=== PATIENT | female | born 1990 | race Two or more races ===

== ENCOUNTER → 2017-10-13 | Outpatient (CLI) | payer BC, OTHER ==
[~2017-10-13] MED LIST: ACEBUTCAFT PO; ACET325 PO; ALBU90OI INH; AMOX500 PO; ANTIBIOTICS; ASCO500 PO; BENZ100A PO; BIRTH CONTROL MEDS; CALCAVITD PO; CEPH500 PO; CYCL10 PO; FAMO20 PO; HYDACE5 PO; HYOS.125 SL; IBUP600 PO; IBUP800 PO; LEVSOD100 PO; LIDO700A20 TOP; METO10 PO; MULVITMINE; NAPR500 PO; NAPR550 PO; NITR100CA PO; Norco 5-325 Ta1 EACH PO; OMEP20ER PO; ONDA4ODT MM; OXYACE5T PO; PRODEXEL PO; PROM25 PO; Prednisone20 MG PO; Prilosec20 MG PO; RXONDA4ODT MM; RXPROM25 PO; SUCR1 PO; THYROID; TYLENOL AND MOTRIN; Verotin-Gr Cap1 EACH PO; Zithromax250 MG PO; Zofran Odt4 MG PO; Zofran8 MG PO
== END ==
LOC: LAB SHORT 16:24
DX: M54.5 Low back pain (principal); N39.0 Urinary tract infection, site not specified
CPT/HCPCS: 87086

== ENCOUNTER → 2018-03-23 | Outpatient (CLI) | payer OTHER ==
[~2018-03-23] MED LIST changes: -LEVSOD100 PO; -LIDO700A20 TOP; -Prednisone20 MG PO; -Verotin-Gr Cap1 EACH PO; -Zofran8 MG PO
== END ==
LOC: LAB 17:09 → LAB SHORT 17:09
DX: M54.89 Other dorsalgia (principal)
CPT/HCPCS: 87086

== ENCOUNTER 2018-05-05 22:33 | Emergency (ER) | payer OTHER ==
[~2018-05-05] VITALS: Ht 154.9 cm; Wt 111.1 kg
[2018-05-06] MEDS ORDERED: Prednisone20 MG PO (02:44)
[2018-05-06] MEDS ORDERED: LIDO700A20 TOP (02:44)
== END 2018-05-06 02:59 | disposition home or self-care (01) ==
LOC: ER 22:33
DX: M54.12 Radiculopathy, cervical region (principal); G89.29 Other chronic pain; R20.2 Paresthesia of skin; Z79.899 Other long term (current) drug therapy; Z79.52 Long term (current) use of systemic steroids; K21.9 Gastro-esophageal reflux disease without esophagitis
CPT/HCPCS: 82947; 99283

== ENCOUNTER → 2018-11-30 | Outpatient (CLI) | payer OTHER ==
[~2018-11-30] MED LIST changes: +LEVSOD100 PO; +LIDO700A20 TOP; +Prednisone20 MG PO; +Verotin-Gr Cap1 EACH PO; +Zofran8 MG PO
[2018-12-02 02:12] LABS: CHLAMYDIA TRACHOMATIS, NAA Negative (Negative); HPV 16 Negative (Negative); HPV 18 Negative (Negative); HPV OTHER HR TYPES Positive (Negative); NEISSERIA GONORRHOEAE, NAA Negative (Negative)
== END | disposition home or self-care (01) ==
LOC: LAB SHORT 10:21 → LAB 10:21
PROVIDERS: Obstetrics & Gynecology
DX: Z36.89 Encounter for other specified antenatal screening (principal)
CPT/HCPCS: 87491; 87591; 87624; 87625; G0123

== ENCOUNTER → 2019-02-15 | Outpatient (CLI) | payer OTHER ==
[2019-02-15 10:16] LABS: Source, Urine Clean Catch
[2019-02-15 12:35] LABS: Bilirubin, Urine Neg (Neg); Blood, Urine 1+ (Neg); Glucose Qualitative, Urine Neg (Neg); Ketones, Urine Neg (Neg); Leukocyte Esterase, Urine 1+ (Neg); Nitrite, Urine Neg (Neg); Protein, Urine 3+ (Neg); Specific Gravity, Urine 1.015 (1.003-1.022); Urobilinogen, Urine NORM (Normal); pH, Urine 6.5 (5.0-8.0)
[2019-02-15 12:54] LABS: Appearance, Urine Hazy (Clear); Bacteria Few /hpf; Color, Urine Yellow (P-Yellow); Squamous Epithelial Cells Mod /hpf (Few)
[2019-02-16 11:12] LABS: Candida species (DNA Probe) Negative (NEGATIVE); G. vaginalis (DNA Probe) Negative (NEGATIVE); T. vaginalis (DNA Probe) Negative (NEGATIVE)
== END | disposition home or self-care (01) ==
LOC: LAB SHORT 09:51 → LAB 09:51
PROVIDERS: Obstetrics & Gynecology
DX: N76.0 Acute vaginitis (principal); R80.9 Proteinuria, unspecified
CPT/HCPCS: 81001; 87086; 87480; 87510; 87660

== ENCOUNTER → 2019-05-11 | Outpatient (CLI) | payer OTHER | END | disposition home or self-care (01) | LOC: LAB EV 17:41 → LAB SHORT 17:41 | DX: Z34.80 Encounter for supervision of other normal pregnancy, unspecified trimester (principal) | CPT/HCPCS: 87081; 87653 ==

== ENCOUNTER 2019-05-25 14:30 | Inpatient (IN) | payer OTHER ==
[~2019-05-25] VITALS: Ht 154.9 cm; Wt 124.2 kg
[2019-05-25 16:24] LABS: BASOPHILS ABSOLUTE AUTO 0.02 K/mm3 (0.00-0.23); BASOPHILS PERCENT AUTO 0 % (0-2); EOSINOPHILS ABSOLUTE AUTO 0.03 K/mm3 (0.00-0.68); EOSINOPHILS PERCENT AUTO 0 % (0-6); Hematocrit 37.4 % (33.0-51.0); Hemoglobin 12.2 g/dL (11.5-16.0); IMMATURE GRAN ABSOLUTE AUTO 0.07 K/mm3 (0.00-0.10); IMMATURE GRAN PERCENT AUTO 1 % (0-1); LYMPHOCYTES ABSOLUTE AUTO 1.61 K/mm3 (0.84-5.20); LYMPHOCYTES PERCENT AUTO 18 % (21-46); MONOCYTES ABSOLUTE AUTO 0.53 K/mm3 (0.16-1.47); MONOCYTES PERCENT AUTO 6 % (4-13); Mean Corpuscular HGB 27.2 pg (26.0-34.0); Mean Corpuscular HGB Conc 32.6 g/dL (31.5-36.5); Mean Corpuscular Volume 83 fL (80-100); Mean Platelet Volume 9.6 fL (9.1-12.4); NEUTROPHILS ABSOLUTE AUTO 6.94 K/mm3 (1.96-9.15); NEUTROPHILS PERCENT AUTO 75 % (41-73); Platelet Count 293 K/mm3 (150-400); RDW Coefficient Variation 13.4 % (11.7-14.2); RDW Standard Deviation 40.6 fL (35.1-46.3); Red Blood Cell Count 4.49 M/mm3 (3.80-5.20)
[2019-05-26 05:45] LABS: Hematocrit 32.1 % (33.0-51.0); Hemoglobin 10.5 g/dL (11.5-16.0); Mean Corpuscular HGB 27.1 pg (26.0-34.0); Mean Corpuscular HGB Conc 32.7 g/dL (31.5-36.5); Mean Corpuscular Volume 83 fL (80-100); Mean Platelet Volume 9.6 fL (9.1-12.4); Platelet Count 256 K/mm3 (150-400); RDW Coefficient Variation 13.6 % (11.7-14.2); RDW Standard Deviation 40.5 fL (35.1-46.3); Red Blood Cell Count 3.87 M/mm3 (3.80-5.20)
[2019-05-26] MEDS ORDERED: IBUP800 PO (11:59)
--- NOTE | 2019-05-26 20:52 | NUR ---
DC SUMMARY PT PAIN CONTROLLED W/ ORAL MEDICATIONS. VSS AND BLEEDING WNL. CARING FOR SELF AND BABY INDEPENDENTLY. DC INSTRUCTIONS GIVEN W/ NO ADDITIONAL QUESTIONS AT THIS TIME. PT AMBULATED OFF UNIT W/ FAMILY.
== END 2019-05-26 20:55 | disposition home or self-care (01) | DRG 807 ==
LOC: BC 14:30 → OBS 14:30 → BC 15:10
PROVIDERS: ADMIT Obstetrics & Gynecology
PROC: 10E0XZZ Delivery of Products of Conception, External Approach (ICD-10-PCS; principal; 2019-05-25)
PROC: 10907ZC Drainage of Amniotic Fluid, Therapeutic from Products of Conception, Via Natural or Artificial Opening (ICD-10-PCS; 2019-05-25)
DX: O77.0 Labor and delivery complicated by meconium in amniotic fluid (principal); Z37.0 Single live birth; Z3A.38 38 weeks gestation of pregnancy; O69.81X0 Labor and delivery complicated by cord around neck, without compression, not applicable or unspecified
CPT/HCPCS: 36415; 59025; 85025; 85027; 87210; 99214; J1885; J2590

== ENCOUNTER → 2019-07-14 | Outpatient (CLI) | payer OTHER | END | disposition home or self-care (01) | LOC: LAB 10:39 → LAB SHORT 10:39 | DX: O99.285 Endocrine, nutritional and metabolic diseases complicating the puerperium (principal); E03.9 Hypothyroidism, unspecified | CPT/HCPCS: 84443 ==

== ENCOUNTER → 2020-03-01 | Outpatient (CLI) | payer OTHER | END | disposition home or self-care (01) | LOC: PLD 13:15 → LAB SHORT 13:15 | DX: D06.1 Carcinoma in situ of exocervix (principal) | CPT/HCPCS: 88305; 88342 ==

== ENCOUNTER → 2020-04-20 | Outpatient (CLI) | payer OTHER | END | disposition home or self-care (01) | LOC: PLD 09:54 → LAB SHORT 09:54 | DX: D06.9 Carcinoma in situ of cervix, unspecified (principal) | CPT/HCPCS: 88305 ==

== ENCOUNTER 2020-09-22 23:49 | Emergency (ER) | payer OTHER ==
[~2020-09-22] VITALS: Ht 154.9 cm; Wt 113.4 kg
[2020-09-23 00:32] LABS: Source, Urine Clean Catch
[2020-09-23 00:45] LABS: Bilirubin, Urine Neg (Neg); Blood, Urine 3+ (Neg); Glucose Qualitative, Urine Neg (Neg); Ketones, Urine 1+ (Neg); Leukocyte Esterase, Urine Neg (Neg); Nitrite, Urine Neg (Neg); Protein, Urine Neg (Neg); Specific Gravity, Urine 1.015 (1.003-1.022); Urobilinogen, Urine NORM (Normal)
[2020-09-23 00:50] LABS: Appearance, Urine Clear (Clear); Bacteria Mod /hpf; Color, Urine Yellow (P-Yellow); Red Blood Cells, Urine 0-2 /hpf (0-2); Squamous Epithelial Cells Few /hpf (Few); White Blood Cells, Urine 0-2 /hpf (0-5)
[2020-09-23 00:52] LABS: BASOPHILS ABSOLUTE AUTO 0.04 K/mm3 (0.00-0.23); BASOPHILS PERCENT AUTO 0 % (0-2); EOSINOPHILS ABSOLUTE AUTO 0.13 K/mm3 (0.00-0.68); EOSINOPHILS PERCENT AUTO 1 % (0-6); Hematocrit 38.6 % (33.0-51.0); Hemoglobin 12.4 g/dL (11.5-16.0); IMMATURE GRAN ABSOLUTE AUTO 0.03 K/mm3 (0.00-0.10); IMMATURE GRAN PERCENT AUTO 0 % (0-1); LYMPHOCYTES ABSOLUTE AUTO 3.67 K/mm3 (0.84-5.20); LYMPHOCYTES PERCENT AUTO 28 % (21-46); MONOCYTES ABSOLUTE AUTO 0.55 K/mm3 (0.16-1.47); MONOCYTES PERCENT AUTO 4 % (4-13); Mean Corpuscular HGB 27.5 pg (26.0-34.0); Mean Corpuscular HGB Conc 32.1 g/dL (31.5-36.5); Mean Corpuscular Volume 86 fL (80-100); Mean Platelet Volume 9.3 fL (9.1-12.4); NEUTROPHILS ABSOLUTE AUTO 8.66 K/mm3 (1.96-9.15); NEUTROPHILS PERCENT AUTO 66 % (41-73); Platelet Count 313 K/mm3 (150-400); RDW Coefficient Variation 12.8 % (11.7-14.2); RDW Standard Deviation 39.8 fL (35.1-46.3); Red Blood Cell Count 4.51 M/mm3 (3.80-5.20); White Blood Cell Count 13.08 K/mm3 (4.00-11.30)
[2020-09-23 01:11] LABS: Alanine Aminotransfer (ALT/SGP 23 U/L (12-78); Albumin, Blood 3.3 g/dL (3.4-5.0); Albumin/Globulin Ratio 0.7 (0.8-1.8); Alk Phos 73 U/L (50-136); Anion Gap 4 mmol/L (6-16); Aspartate Aminotrans (AST/SGOT 9 U/L (12-37); Bilirubin, Total 0.2 mg/dL (0.1-1.0); Blood Urea Nitrogen 14 mg/dL (8-24); Bun/Creatinine Ratio 18.9 (12.0-20.0); CO2, Blood 26 mmol/L (21-32); Calcium, Blood 8.6 mg/dL (8.5-10.1); Chloride, Blood 109 mmol/L (98-108); Creatinine, Blood 0.74 mg/dL (0.40-1.00); Globulin, Blood 4.7 g/dL (2.2-4.0); Glomerular Filtration Rate >60 (60-); Glucose, Blood 101 mg/dL (70-99); Potassium, Blood 3.7 mmol/L (3.5-5.5); Sodium, Blood 139 mmol/L (136-145)
== END 2020-09-23 02:32 | disposition home or self-care (01) ==
LOC: ER 23:49
PROVIDERS: Emergency Medicine
DX: R10.32 Left lower quadrant pain (principal); R10.2 Pelvic and perineal pain; K21.9 Gastro-esophageal reflux disease without esophagitis; E03.9 Hypothyroidism, unspecified
CPT/HCPCS: 36415; 80053; 81001; 81025; 85025; 87086; 96374; 99284-25; A9270-GY; J1885

== ENCOUNTER 2020-10-03 13:23 | Emergency (ER) | payer OTHER ==
[~2020-10-03] VITALS: Ht 154.9 cm; Wt 113.4 kg
[2020-10-03 14:22] LABS: BASOPHILS ABSOLUTE AUTO 0.03 K/mm3 (0.00-0.23); BASOPHILS PERCENT AUTO 0 % (0-2); EOSINOPHILS ABSOLUTE AUTO 0.07 K/mm3 (0.00-0.68); EOSINOPHILS PERCENT AUTO 1 % (0-6); Hemoglobin 13.7 g/dL (11.5-16.0); IMMATURE GRAN ABSOLUTE AUTO 0.01 K/mm3 (0.00-0.10); IMMATURE GRAN PERCENT AUTO 0 % (0-1); LYMPHOCYTES ABSOLUTE AUTO 2.67 K/mm3 (0.84-5.20); LYMPHOCYTES PERCENT AUTO 39 % (21-46); MONOCYTES ABSOLUTE AUTO 0.34 K/mm3 (0.16-1.47); MONOCYTES PERCENT AUTO 5 % (4-13); Mean Corpuscular HGB 27.3 pg (26.0-34.0); Mean Corpuscular HGB Conc 31.9 g/dL (31.5-36.5); Mean Corpuscular Volume 86 fL (80-100); Mean Platelet Volume 9.1 fL (9.1-12.4); NEUTROPHILS ABSOLUTE AUTO 3.77 K/mm3 (1.96-9.15); NEUTROPHILS PERCENT AUTO 55 % (41-73); Platelet Count 279 K/mm3 (150-400); RDW Standard Deviation 40.4 fL (35.1-46.3); Red Blood Cell Count 5.01 M/mm3 (3.80-5.20); White Blood Cell Count 6.89 K/mm3 (4.00-11.30)
[2020-10-03 14:42] LABS: Alanine Aminotransfer (ALT/SGP 23 U/L (12-78); Albumin, Blood 3.3 g/dL (3.4-5.0); Albumin/Globulin Ratio 0.7 (0.8-1.8); Alk Phos 59 U/L (50-136); Anion Gap 5 mmol/L (6-16); Aspartate Aminotrans (AST/SGOT 15 U/L (12-37); Bilirubin, Total 0.2 mg/dL (0.1-1.0); Blood Urea Nitrogen 10 mg/dL (8-24); Bun/Creatinine Ratio 16.3 (12.0-20.0); CO2, Blood 25 mmol/L (21-32); Calcium, Blood 9.1 mg/dL (8.5-10.1); Chloride, Blood 108 mmol/L (98-108); Creatinine, Blood 0.61 mg/dL (0.40-1.00); Globulin, Blood 4.8 g/dL (2.2-4.0); Glomerular Filtration Rate >60 (60-); Glucose, Blood 86 mg/dL (70-99); Sodium, Blood 138 mmol/L (136-145); Total Protein, Blood 8.1 g/dL (6.4-8.2)
[2020-10-03 15:31] LABS: Source, Urine Clean Catch
[2020-10-03 15:36] LABS: Appearance, Urine Clear (Clear); Bilirubin, Urine Neg (Neg); Blood, Urine 2+ (Neg); Color, Urine Yellow (P-Yellow); Glucose Qualitative, Urine Neg (Neg); Ketones, Urine 1+ (Neg); Leukocyte Esterase, Urine Neg (Neg); Nitrite, Urine Neg (Neg); Protein, Urine Neg (Neg); Specific Gravity, Urine 1.025 (1.003-1.022); Urobilinogen, Urine NORM (Normal)
[2020-10-03] MEDS ORDERED: NORGESTIMATE-E1 EAC2 PO (16:03)
[2020-10-03 16:13] LABS: White Blood Cells, Urine 0-2 /hpf (0-5)
[2020-10-03 16:14] LABS: Bacteria Few /hpf; Mucus Light (0-Heavy); Squamous Epithelial Cells Mod /hpf (Few)
== END 2020-10-03 16:56 | disposition home or self-care (01) ==
LOC: ER 13:23
PROVIDERS: Physician Assistant
DX: R10.31 Right lower quadrant pain (principal); R11.0 Nausea; Z79.3 Long term (current) use of hormonal contraceptives
CPT/HCPCS: 36415; 76830; 76856; 80053; 81001; 81025; 83690; 85025; 99284-25

== ENCOUNTER 2021-02-15 17:52 | Emergency (ER) | payer OTHER ==
[~2021-02-15] VITALS: Ht 154.9 cm; Wt 124.7 kg
[~2021-02-15 17:52] MED LIST changes: +NORGESTIMATE-E1 EAC2 PO
[2021-02-15 19:14] LABS: Alanine Aminotransfer (ALT/SGP 55 U/L (12-78); Albumin, Blood 3.9 g/dL (3.4-5.0); Albumin/Globulin Ratio 0.9 (0.8-1.8); Alk Phos 83 U/L (50-136); Anion Gap 5 mmol/L (6-16); Aspartate Aminotrans (AST/SGOT 21 U/L (12-37); Beta HCG, Quantitative, Serum <1 mIU/mL (0-3); Bilirubin, Total 0.2 mg/dL (0.1-1.0); Blood Urea Nitrogen 9 mg/dL (8-24); Bun/Creatinine Ratio 13.5 (12.0-20.0); CO2, Blood 25 mmol/L (21-32); Calcium, Blood 9.1 mg/dL (8.5-10.1); Chloride, Blood 110 mmol/L (98-108); Creatinine, Blood 0.67 mg/dL (0.40-1.00); Globulin, Blood 4.3 g/dL (2.2-4.0); Glomerular Filtration Rate >60 (60-); Glucose, Blood 99 mg/dL (70-99); Potassium, Blood 3.6 mmol/L (3.5-5.5); Sodium, Blood 140 mmol/L (136-145); Total Protein, Blood 8.2 g/dL (6.4-8.2)
[2021-02-15 19:35] LABS: BASOPHILS ABSOLUTE AUTO 0.05 K/mm3 (0.00-0.23); BASOPHILS PERCENT AUTO 1 % (0-2); EOSINOPHILS ABSOLUTE AUTO 0.15 K/mm3 (0.00-0.68); EOSINOPHILS PERCENT AUTO 2 % (0-6); Hematocrit 40.4 % (33.0-51.0); Hemoglobin 13.7 g/dL (11.5-16.0); IMMATURE GRAN ABSOLUTE AUTO 0.04 K/mm3 (0.00-0.10); IMMATURE GRAN PERCENT AUTO 0 % (0-1); LYMPHOCYTES ABSOLUTE AUTO 3.45 K/mm3 (0.84-5.20); LYMPHOCYTES PERCENT AUTO 35 % (21-46); MONOCYTES ABSOLUTE AUTO 0.67 K/mm3 (0.16-1.47); MONOCYTES PERCENT AUTO 7 % (4-13); Mean Corpuscular HGB 28.1 pg (26.0-34.0); Mean Corpuscular HGB Conc 33.9 g/dL (31.5-36.5); Mean Corpuscular Volume 83 fL (80-100); NEUTROPHILS ABSOLUTE AUTO 5.58 K/mm3 (1.96-9.15); NEUTROPHILS PERCENT AUTO 56 % (41-73); RDW Coefficient Variation 12.6 % (11.7-14.2); RDW Standard Deviation 38.3 fL (35.1-46.3); Red Blood Cell Count 4.87 M/mm3 (3.80-5.20); White Blood Cell Count 9.94 K/mm3 (4.00-11.30)
[2021-02-15 20:11] LABS: Mean Platelet Volume 10.1 fL (9.1-12.4); Platelet Count 240 K/mm3 (150-400)
[2021-02-15] MEDS ORDERED: PRENATAL TABLE1 EAC2 PO (21:30)
[2021-02-15 21:42] LABS: Source, Urine Clean Catch
[2021-02-15 21:49] LABS: Bilirubin, Urine Neg (Neg); Blood, Urine 2+ (Neg); Glucose Qualitative, Urine Neg (Neg); Ketones, Urine Neg (Neg); Leukocyte Esterase, Urine 1+ (Neg); Nitrite, Urine Neg (Neg); Protein, Urine Neg (Neg); Urobilinogen, Urine NORM (Normal)
[2021-02-15 21:53] LABS: Appearance, Urine Clear (Clear); Color, Urine Yellow (P-Yellow)
[2021-02-15 21:59] LABS: Amorphous Light (0-Heavy); Bacteria Few /hpf; Red Blood Cells, Urine 0-2 /hpf (0-2); Squamous Epithelial Cells Mod /hpf (Few); White Blood Cells, Urine 0-2 /hpf (0-5)
== END 2021-02-15 22:37 | disposition home or self-care (01) ==
LOC: ER 17:52
PROVIDERS: Emergency Medicine
DX: N93.9 Abnormal uterine and vaginal bleeding, unspecified (principal); K21.9 Gastro-esophageal reflux disease without esophagitis
CPT/HCPCS: 36415; 80053; 81001; 84702; 85025; 99284

== ENCOUNTER 2021-04-07 19:03 | Emergency (ER) | payer OTHER ==
[~2021-04-07] VITALS: Ht 154.9 cm; Wt 124.7 kg
[~2021-04-07 19:03] MED LIST changes: +PRENATAL TABLE1 EAC2 PO
[2021-04-07 20:23] LABS: BASOPHILS ABSOLUTE AUTO 0.02 K/mm3 (0.00-0.23); BASOPHILS PERCENT AUTO 0 % (0-2); EOSINOPHILS ABSOLUTE AUTO 0.02 K/mm3 (0.00-0.68); EOSINOPHILS PERCENT AUTO 0 % (0-6); Hematocrit 40.5 % (33.0-51.0); Hemoglobin 13.6 g/dL (11.5-16.0); IMMATURE GRAN ABSOLUTE AUTO 0.03 K/mm3 (0.00-0.10); IMMATURE GRAN PERCENT AUTO 0 % (0-1); LYMPHOCYTES ABSOLUTE AUTO 1.16 K/mm3 (0.84-5.20); LYMPHOCYTES PERCENT AUTO 17 % (21-46); MONOCYTES ABSOLUTE AUTO 0.25 K/mm3 (0.16-1.47); MONOCYTES PERCENT AUTO 4 % (4-13); Mean Corpuscular HGB 28.1 pg (26.0-34.0); Mean Corpuscular HGB Conc 33.6 g/dL (31.5-36.5); Mean Corpuscular Volume 84 fL (80-100); Mean Platelet Volume 9.4 fL (9.1-12.4); NEUTROPHILS ABSOLUTE AUTO 5.35 K/mm3 (1.96-9.15); NEUTROPHILS PERCENT AUTO 78 % (41-73); Platelet Count 240 K/mm3 (150-400); RDW Coefficient Variation 12.9 % (11.7-14.2); RDW Standard Deviation 39.4 fL (35.1-46.3); Red Blood Cell Count 4.84 M/mm3 (3.80-5.20); White Blood Cell Count 6.83 K/mm3 (4.00-11.30)
[2021-04-07 20:39] LABS: Alanine Aminotransfer (ALT/SGP 42 U/L (12-78); Albumin, Blood 3.5 g/dL (3.4-5.0); Albumin/Globulin Ratio 0.9 (0.8-1.8); Alk Phos 76 U/L (50-136); Anion Gap 7 mmol/L (6-16); Aspartate Aminotrans (AST/SGOT 16 U/L (12-37); Bilirubin, Total 0.3 mg/dL (0.1-1.0); Blood Urea Nitrogen 9 mg/dL (8-24); Bun/Creatinine Ratio 12.1 (12.0-20.0); CO2, Blood 23 mmol/L (21-32); Calcium, Blood 8.7 mg/dL (8.5-10.1); Chloride, Blood 111 mmol/L (98-108); Creatinine, Blood 0.74 mg/dL (0.40-1.00); Glomerular Filtration Rate >60 (60-); Glucose, Blood 104 mg/dL (70-99); Potassium, Blood 3.8 mmol/L (3.5-5.5); Sodium, Blood 141 mmol/L (136-145); Total Protein, Blood 7.5 g/dL (6.4-8.2)
[2021-04-07] MEDS ORDERED: DICY20 PO (21:15)
== END 2021-04-07 21:25 | disposition home or self-care (01) ==
LOC: ER 19:03
PROVIDERS: Physician Assistant
DX: R10.9 Unspecified abdominal pain (principal); Z90.49 Acquired absence of other specified parts of digestive tract
CPT/HCPCS: 76705; 80053; 83690; 84703; 85025; 96374; 96375; 99284-25; J1170; J2405

== ENCOUNTER → 2021-08-02 | Outpatient (CLI) | payer OTHER ==
[~2021-08-02] MED LIST changes: +DICY20 PO
[2021-08-02 17:46] LABS: BASOPHILS ABSOLUTE AUTO 0.05 K/mm3 (0.00-0.23); BASOPHILS PERCENT AUTO 1 % (0-2); EOSINOPHILS ABSOLUTE AUTO 0.08 K/mm3 (0.00-0.68); EOSINOPHILS PERCENT AUTO 1 % (0-6); Hematocrit 40.9 % (33.0-51.0); Hemoglobin 13.3 g/dL (11.5-16.0); IMMATURE GRAN ABSOLUTE AUTO 0.04 K/mm3 (0.00-0.10); IMMATURE GRAN PERCENT AUTO 1 % (0-1); LYMPHOCYTES ABSOLUTE AUTO 2.84 K/mm3 (0.84-5.20); LYMPHOCYTES PERCENT AUTO 37 % (21-46); MONOCYTES ABSOLUTE AUTO 0.41 K/mm3 (0.16-1.47); MONOCYTES PERCENT AUTO 5 % (4-13); Mean Corpuscular HGB 28.7 pg (26.0-34.0); Mean Corpuscular HGB Conc 32.5 g/dL (31.5-36.5); Mean Corpuscular Volume 88 fL (80-100); Mean Platelet Volume 9.7 fL (9.1-12.4); NEUTROPHILS ABSOLUTE AUTO 4.17 K/mm3 (1.96-9.15); NEUTROPHILS PERCENT AUTO 55 % (41-73); Platelet Count 324 K/mm3 (150-400); RDW Coefficient Variation 12.4 % (11.7-14.2); RDW Standard Deviation 40.4 fL (35.1-46.3); Red Blood Cell Count 4.63 M/mm3 (3.80-5.20); White Blood Cell Count 7.59 K/mm3 (4.00-11.30)
[2021-08-02 18:08] LABS: Alanine Aminotransfer (ALT/SGP 49 U/L (12-78); Albumin, Blood 3.5 g/dL (3.4-5.0); Albumin/Globulin Ratio 0.8 (0.8-1.8); Alk Phos 79 U/L (50-136); Anion Gap 4 mmol/L (6-16); Aspartate Aminotrans (AST/SGOT 18 U/L (12-37); Bilirubin, Total 0.4 mg/dL (0.1-1.0); Blood Urea Nitrogen 9 mg/dL (8-24); Bun/Creatinine Ratio 14.5 (12.0-20.0); CHOL/HDL RATIO 4.5; CO2, Blood 26 mmol/L (21-32); Chloride, Blood 107 mmol/L (98-108); Cholesterol 194 mg/dL (50-200); Creatinine, Blood 0.62 mg/dL (0.40-1.00); Globulin, Blood 4.4 g/dL (2.2-4.0); Glomerular Filtration Rate >60 (60-); Glucose, Blood 86 mg/dL (70-99); HDL Cholesterol 43 mg/dL (>39); LDL/HDL RATIO 2.6; Low Density Lipoprotein Chol 110 mg/dL (0-110); Potassium, Blood 4.4 mmol/L (3.5-5.5); Sodium, Blood 137 mmol/L (136-145); Thyroxine (T4) 7.9 ug/dL (4.8-13.9); Total Protein, Blood 7.9 g/dL (6.4-8.2); Triglycerides 206 mg/dL (30-140); Very Low Density Lipoprot Chol 41 mg/dL (6-28)
== END ==
LOC: LAB SHORT 16:22 → LAB 16:22
PROVIDERS: Physician Assistant Medical
DX: Z32.00 Encounter for pregnancy test, result unknown (principal); Z86.39 Personal history of other endocrine, nutritional and metabolic disease
CPT/HCPCS: 80053; 80061; 84436; 84443; 84702; 84703; 85025

== ENCOUNTER 2021-08-16 17:44 | Emergency (ER) | payer OTHER ==
[~2021-08-16] VITALS: Ht 154.9 cm; Wt 129.3 kg
[2021-08-16 18:55] LABS: Source, Urine Clean Catch
[2021-08-16 19:00] LABS: Appearance, Urine Clear (Clear); Bilirubin, Urine Neg (Neg); Blood, Urine 2+ (Neg); Color, Urine Yellow (P-Yellow); Glucose Qualitative, Urine Neg (Neg); Ketones, Urine Neg (Neg); Leukocyte Esterase, Urine Neg (Neg); Nitrite, Urine Neg (Neg); Protein, Urine Neg (Neg); Specific Gravity, Urine 1.015 (1.003-1.022); Urobilinogen, Urine NORM (Normal); pH, Urine 6.5 (5.0-8.0)
[2021-08-16 19:07] LABS: Bacteria Mod /hpf; Red Blood Cells, Urine Rare /hpf (0-2); Squamous Epithelial Cells Mod /hpf (Few); White Blood Cells, Urine Rare /hpf (0-5)
[2021-08-16] MEDS ORDERED: Synthroid/Levo0.2 MG (19:57)
== END 2021-08-16 20:32 | disposition home or self-care (01) ==
LOC: ER 17:44
PROVIDERS: Physician Assistant
DX: N94.6 Dysmenorrhea, unspecified (principal); K21.9 Gastro-esophageal reflux disease without esophagitis; E03.8 Other specified hypothyroidism; Z79.899 Other long term (current) drug therapy
CPT/HCPCS: 76801; 76817; 81001; 81025; 87086; 99284-25

== ENCOUNTER → 2022-03-05 | Outpatient (CLI) | payer OTHER ==
[~2022-03-05] MED LIST changes: +Synthroid/Levo0.2 MG
[2022-03-06 08:48] LABS: Candida species (DNA Probe) Negative (NEGATIVE); G. vaginalis (DNA Probe) Negative (NEGATIVE); T. vaginalis (DNA Probe) Negative (NEGATIVE)
== END | disposition home or self-care (01) ==
LOC: LAB SHORT 16:11
PROVIDERS: Obstetrics & Gynecology
DX: R10.2 Pelvic and perineal pain (principal)
CPT/HCPCS: 87480; 87510; 87660

== ENCOUNTER → 2022-06-03 | Outpatient (CLI) | payer OTHER | END | disposition home or self-care (01) | LOC: LAB SHORT 09:58 → LAB 09:58 | DX: O09.93 Supervision of high risk pregnancy, unspecified, third trimester (principal) | CPT/HCPCS: 87081; 87150 ==

== ENCOUNTER 2022-06-27 05:51 | Inpatient (IN) | payer OTHER ==
[~2022-06-27] VITALS: Ht 154.9 cm; Wt 131.5 kg
[2022-06-27 06:56] LABS: BASOPHILS ABSOLUTE AUTO 0.03 K/mm3 (0.00-0.23); BASOPHILS PERCENT AUTO 0 % (0-2); EOSINOPHILS ABSOLUTE AUTO 0.06 K/mm3 (0.00-0.68); EOSINOPHILS PERCENT AUTO 1 % (0-6); Hematocrit 35.8 % (33.0-51.0); Hemoglobin 11.9 g/dL (11.5-16.0); IMMATURE GRAN ABSOLUTE AUTO 0.05 K/mm3 (0.00-0.10); IMMATURE GRAN PERCENT AUTO 1 % (0-1); LYMPHOCYTES ABSOLUTE AUTO 2.17 K/mm3 (0.84-5.20); LYMPHOCYTES PERCENT AUTO 24 % (21-46); MONOCYTES ABSOLUTE AUTO 0.54 K/mm3 (0.16-1.47); MONOCYTES PERCENT AUTO 6 % (4-13); Mean Corpuscular HGB 27.2 pg (26.0-34.0); Mean Corpuscular HGB Conc 33.2 g/dL (31.5-36.5); Mean Corpuscular Volume 82 fL (80-100); NEUTROPHILS ABSOLUTE AUTO 6.21 K/mm3 (1.96-9.15); NEUTROPHILS PERCENT AUTO 68 % (41-73); Platelet Count 277 K/mm3 (150-400); RDW Coefficient Variation 14.3 % (11.7-14.2); RDW Standard Deviation 41.5 fL (35.1-46.3); Red Blood Cell Count 4.37 M/mm3 (3.80-5.20); White Blood Cell Count 9.06 K/mm3 (4.00-11.30)
--- NOTE | 2022-06-27 15:47 | NUR ---
1330 ASSUMED CARE PATIENT AWAKE AND COMFORTABLE WITH BABY IN ARMS. BABY AT BREAST
--- NOTE | 2022-06-27 15:48 | NUR ---
1530 REQUESTING PAIN MEDICATION FOR CRAMPING. BABY AT BREAST
--- NOTE | 2022-06-28 12:01 | NUR ---
DISCHARGE INSTRUCTIONS GIVEN TO PT AND PT'S SO. THERE WERE NO FURTHER QUESTIONS AND PT WAS ENCOURAGE TO CALL [facility] IF SHE NEEDS ANYTHING. PT WALKED TO CAR AND DISCHARGED HOME.
== END 2022-06-28 11:55 | disposition home or self-care (01) | DRG 807 ==
LOC: BC 05:51 → OBS 05:51 → BC 06:23
PROVIDERS: ADMIT Obstetrics & Gynecology
PROC: 10E0XZZ Delivery of Products of Conception, External Approach (ICD-10-PCS; principal; 2022-06-27)
PROC: 10907ZC Drainage of Amniotic Fluid, Therapeutic from Products of Conception, Via Natural or Artificial Opening (ICD-10-PCS; 2022-06-27)
DX: O99.214 Obesity complicating childbirth (principal); Z37.0 Single live birth; O99.284 Endocrine, nutritional and metabolic diseases complicating childbirth; Z20.822 Contact with and (suspected) exposure to COVID-19; O43.123 Velamentous insertion of umbilical cord, third trimester; Z67.40 Type O blood, Rh positive; E03.9 Hypothyroidism, unspecified; Z3A.39 39 weeks gestation of pregnancy; Z90.49 Acquired absence of other specified parts of digestive tract; Z98.890 Other specified postprocedural states; Z79.899 Other long term (current) drug therapy
CPT/HCPCS: 36415; 59025; 85025; 86850; 86900; 86901; A9270; J1885; J3010; J7120

== ENCOUNTER → 2022-09-19 | Outpatient (CLI) | payer OTHER | END | disposition home or self-care (01) | LOC: LAB SHORT 16:49 → LAB 16:49 | DX: L08.82 Omphalitis not of newborn (principal) | CPT/HCPCS: 87070; 87205 ==

== ENCOUNTER 2023-11-10 17:53 | Emergency (ER) | payer OTHER ==
[~2023-11-10] VITALS: Ht 154.9 cm; Wt 131.1 kg
[2023-11-10 18:50] LABS: BASOPHILS ABSOLUTE AUTO 0.05 K/mm3 (0.00-0.23); BASOPHILS PERCENT AUTO 1 % (0-2); EOSINOPHILS ABSOLUTE AUTO 0.13 K/mm3 (0.00-0.68); EOSINOPHILS PERCENT AUTO 1 % (0-6); Hematocrit 41.6 % (33.0-51.0); Hemoglobin 13.6 g/dL (11.5-16.0); IMMATURE GRAN ABSOLUTE AUTO 0.06 K/mm3 (0.00-0.10); IMMATURE GRAN PERCENT AUTO 1 % (0-1); LYMPHOCYTES ABSOLUTE AUTO 2.68 K/mm3 (0.84-5.20); LYMPHOCYTES PERCENT AUTO 27 % (21-46); MONOCYTES PERCENT AUTO 6 % (4-13); Mean Corpuscular HGB 27.8 pg (26.0-34.0); Mean Corpuscular HGB Conc 32.7 g/dL (31.5-36.5); Mean Corpuscular Volume 85 fL (80-100); Mean Platelet Volume 8.8 fL (9.1-12.4); NEUTROPHILS ABSOLUTE AUTO 6.54 K/mm3 (1.96-9.15); NEUTROPHILS PERCENT AUTO 65 % (41-73); Platelet Count 325 K/mm3 (150-400); RDW Coefficient Variation 12.6 % (11.7-14.2); RDW Standard Deviation 39.2 fL (35.1-46.3); Red Blood Cell Count 4.89 M/mm3 (3.80-5.20); White Blood Cell Count 10.06 K/mm3 (4.00-11.30)
[2023-11-10 19:15] LABS: Albumin, Blood 3.1 g/dL (3.4-5.0); Albumin/Globulin Ratio 0.6 (0.8-1.8); Bilirubin, Total 0.2 mg/dL (0.1-1.0); Bun/Creatinine Ratio 10.2 (12.0-20.0); Creatinine, Blood 0.59 mg/dL (0.40-1.00); Globulin, Blood 5.1 g/dL (2.2-4.0); Potassium, Blood 3.8 mmol/L (3.5-5.5); Total Protein, Blood 8.2 g/dL (6.4-8.2)
[2023-11-10 20:24] LABS: Influenza A, PCR NEGATIVE (NEGATIVE); Influenza B, PCR NEGATIVE (NEGATIVE); Resp Syncytial Virus, PCR NEGATIVE (NEGATIVE); SARS-Cov-2 (COVID-19) PCR, MMC NEGATIVE (NEGATIVE)
[2023-11-10] MEDS ORDERED: Ibuprofen600 MG PO (23:27)
[2023-11-10] MEDS ORDERED: ACET500 PO (23:27)
[2023-11-10 23:30] VITALS: BP 123/74
[2023-11-11 00:05] LABS: Thyroid Stimulating Hormone 1.56 uIU/mL (0.360-4.800)
== END 2023-11-10 23:41 | disposition home or self-care (01) ==
LOC: ER 17:53
PROVIDERS: Student in an Organized Health Care Education/Training Program
DX: G44.209 Tension-type headache, unspecified, not intractable (principal); E86.0 Dehydration; E03.9 Hypothyroidism, unspecified; Z11.52 Encounter for screening for COVID-19; Z79.890 Hormone replacement therapy; Z68.43 Body mass index [BMI] 50.0-59.9, adult
CPT/HCPCS: 0241U; 80053; 81025; 84443; 85025; 96361; 96374; 99284-25; A9270; J1885; J7030

== ENCOUNTER → 2025-02-21 | Outpatient (CLI) | payer OTHER ==
[~2025-02-21] MED LIST changes: +ACET500 PO; +Ibuprofen600 MG PO
[2025-02-28 08:07] LABS: HPV HIGH RISK BY TMA Not Detected; HPV SOURCE Vaginal
== END ==
LOC: LAB 15:44 → LAB SHORT 15:44
PROVIDERS: Family Medicine
DX: Z01.419 Encounter for gynecological examination (general) (routine) without abnormal findings (principal)
CPT/HCPCS: 87624; G0123

== ENCOUNTER → 2025-11-08 | Outpatient (CLI) | payer OTHER ==
[2025-11-12 03:22] LABS: THYROGLOBULIN ANTIBODY <1.5 IU/mL (0.0-4.0); THYROID PEROXIDASE (TPO) AB 1.6 IU/mL (0.0-9.0)
== END ==
LOC: LAB SHORT 10:58 → LAB 10:58
PROVIDERS: Nurse Practitioner Family
DX: E55.9 Vitamin D deficiency, unspecified (principal)
CPT/HCPCS: 82306; 84443; 86376; 86800